=== PATIENT | male | born 1960 | race Caucasian/White ===

== ENCOUNTER 2016-04-20 17:36 | Inpatient (IN) | payer OTHER ==
[~2016-04-20] VITALS: Ht 177.8 cm; Wt 58.6 kg
[2016-04-20 19:09] LABS: HEMATOCRIT 45.3 % (38.0-50.0); MCH 32.2 PG (29.0-34.0); MCHC 34.9 G/DL (30.0-36.0); MCV 92.4 FL (86-99); MEAN PLAT.VOLUME 9.8 uM^3 (9.0-12.4); PLATELET COUNT 263 K/uL (156-360); RBC DIS.WIDTH-SD 43.1 % (39-53); WHITE BLOOD COUNT 26.3 K/uL (4.1-10.2)
[2016-04-20 19:10] LABS: CARBON DIOXIDE (BICARBONATE) 27.9 MEQ/L (20-31)
[2016-04-20 19:18] LABS: CHLORIDE 101 mEq/L (99-109); POTASSIUM 4.3 mEq/L (3.7-5.4); SODIUM 136 mEq/L (136-147)
[2016-04-20 19:20] LABS: GLUCOSE 98 mg/dL (70-99)
[2016-04-20 19:21] LABS: ANION GAP 10 MEQ/L (2-14)
[2016-04-20 19:24] LABS: GFR ESTIMATE (CALCULATED) > 59 mL/min/
[2016-04-20 19:25] LABS: UREA NITROGEN (BUN) 17 mg/dL (9-23)
[2016-04-20 19:30] LABS: TROP-I INTERPRETATION NEGATIVE; TROPONIN-I < 0.01 ng/mL (0.0-0.30)
[2016-04-20] MEDS ORDERED: BREO ELLIPTA I1 EACH IH (20:15)
[2016-04-20] MEDS ORDERED: PROAIR HFA8.5 GM IH (20:15)
[2016-04-20 22:35] VITALS: BP 102/58
[2016-04-20 23:28] LABS: ADD MIUA? NO; BILIRUBIN NEGATIVE; BLOOD NEGATIVE; COLOR YELLOW ((YELLOW)); GLUCOSE (STRIP) NEGATIVE; KETONES 20; LEUKOCYTES NEGATIVE; NITRITE NEGATIVE; PROTEIN (STRIP) NEGATIVE; SPECIFIC GRAVITY 1.028 (1.000-1.030); UCUL ADDED? NO; UROBILINOGEN 0.2 MG/DL (0.2-1.0)
[2016-04-21 03:30] VITALS: BP 98/54
[2016-04-21 06:45] LABS: HEMATOCRIT 42.2 % (38.0-50.0); MCH 31.8 PG (29.0-34.0); MCHC 33.6 G/DL (30.0-36.0); MCV 94.6 FL (86-99); MEAN PLAT.VOLUME 10.8 uM^3 (9.0-12.4); PLATELET COUNT 247 K/uL (156-360); RBC DIS.WIDTH-CV 13.2 % (11.8-14.6); RBC DIS.WIDTH-SD 45.8 % (39-53); RED BLOOD COUNT 4.46 M/uL (4.00-5.50); WHITE BLOOD COUNT 22.6 K/uL (4.1-10.2)
[2016-04-21 07:08] LABS: ANION GAP 7 MEQ/L (2-14); CHLORIDE 104 MEQ/L (99-109); GFR ESTIMATE (CALCULATED) > 59 mL/min/; GLUCOSE 124 mg/dL (70-99); POTASSIUM 4.6 MEQ/L (3.7-5.4); SAMPLE HEMOLYSIS CHECK 0; SAMPLE ICTERIC CHECK 0; SAMPLE LIPEMIA CHECK 0; SODIUM 136 MEQ/L (136-147); UREA NITROGEN (BUN) 17 mg/dL (9-23)
[2016-04-21 07:40] VITALS: BP 92/58
[2016-04-21 11:55] VITALS: BP 104/58
[2016-04-21] MEDS ORDERED: LEVOFLOXACIN750 MG PO (14:24)
[2016-04-21] MEDS ORDERED: PREDNISONE20 MG PO (14:24)
[2016-04-21] MEDS ORDERED: MUCINEX600 MG PO (14:24)
[2016-04-21 15:10] VITALS: BP 103/64
[2016-04-21 20:00] VITALS: BP 109/64
[2016-04-22] VITALS: BP 113/56
[2016-04-22 04:00] VITALS: BP 99/53
[2016-04-22 08:04] VITALS: BP 100/66
== END 2016-04-22 09:40 | disposition home or self-care (01) | DRG 190 ==
LOC: EME 17:36 → 2EAST 21:31 → EDOF 21:31 → 2EAST 22:28
PROVIDERS: Emergency Medicine; Hospitalist
DX: J44.0 Chronic obstructive pulmonary disease with (acute) lower respiratory infection (principal); J15.9 Unspecified bacterial pneumonia; J44.1 Chronic obstructive pulmonary disease with (acute) exacerbation; R63.4 Abnormal weight loss; F17.210 Nicotine dependence, cigarettes, uncomplicated
CPT/HCPCS: 71020; 71275; 80048; 81003; 82803; 83605; 83880; 84484; 85027; 87040; 87070; 87077; 87181; 87205; 93005; 94640; 94640 76; 94799; 99202; 99281; 99285; J0456; J0696; J1650; J2930; J7030; J7050; J7512

== ENCOUNTER 2017-05-09 20:16 | Emergency (ER) | payer OTHER ==
[~2017-05-09] VITALS: Ht 177.8 cm; Wt 54.5 kg
[~2017-05-09 20:16] MED LIST: BREO ELLIPTA I1 EACH IH; LEVOFLOXACIN750 MG PO; MUCINEX600 MG PO; PREDNISONE20 MG PO; PROAIR HFA8.5 GM IH
[2017-05-09 20:46] LABS: HEMATOCRIT 44.9 % (38.0-50.0); HEMOGLOBIN 15.5 G/DL (12.5-16.6); MCH 32.7 PG (29.0-34.0); MCHC 34.5 G/DL (30.0-36.0); MCV 94.7 FL (86-99); PLATELET COUNT 260 K/uL (156-360); RBC DIS.WIDTH-CV 12.7 % (11.8-14.6); RBC DIS.WIDTH-SD 44.8 % (39-53); RED BLOOD COUNT 4.74 M/uL (4.00-5.50); WHITE BLOOD COUNT 14.8 K/uL (4.1-10.2)
[2017-05-09 20:54] LABS: CHLORIDE 104 mEq/L (99-109); POTASSIUM 4.3 mEq/L (3.7-5.4); SODIUM 139 mEq/L (136-147)
[2017-05-09 20:56] LABS: GLUCOSE 92 mg/dL (70-99)
[2017-05-09 20:58] LABS: TOTAL BILIRUBIN 0.3 mg/dL (0.0-1.0)
[2017-05-09 21:00] LABS: ALKALINE PHOSPHATASE 77 IU/L (3-129); CREATININE 0.9 mg/dL (0.6-1.3); GFR ESTIMATE (CALCULATED) > 59 mL/min/ (58.99-99999)
[2017-05-09 21:01] LABS: UREA NITROGEN (BUN) 13 mg/dL (9-23)
[2017-05-09 21:02] LABS: AST (GOT) 23 IU/L (2-34)
[2017-05-09 21:03] LABS: ALT (GPT) 24 IU/L (3-49)
[2017-05-09 21:09] LABS: TROP-I INTERPRETATION NEGATIVE; TROPONIN-I < 0.01 ng/mL (0.0-0.30)
[2017-05-09] MEDS ORDERED: PREDNISONE20 MG PO (22:50)
[2017-05-09] MEDS ORDERED: PROVENTIL HFA6.7 GM IH (22:50)
[2017-05-09] MEDS ORDERED: LEVAQUIN750 MG PO (22:50)
[2017-05-09 23:24] VITALS: BP 101/59
== END 2017-05-09 23:41 | disposition home or self-care (01) ==
LOC: EME → EDBD 20:16 → EME 20:16
PROVIDERS: Emergency Medicine
DX: J44.1 Chronic obstructive pulmonary disease with (acute) exacerbation (principal); Z87.891 Personal history of nicotine dependence
CPT/HCPCS: 71045; 80053; 84484; 85027; 93005; 99281; 99285; J1100; J1956; J7644

== ENCOUNTER 2017-09-12 05:22 | Inpatient (IN) | payer OTHER ==
[~2017-09-12] VITALS: Ht 177.8 cm; Wt 58.3 kg
[~2017-09-12 05:22] MED LIST changes: +LEVAQUIN750 MG PO; +PROVENTIL HFA6.7 GM IH
[2017-09-12 06:07] LABS: COMMENTS - BLOOD GASES C+; DEVICE NIV; SITE LR
[2017-09-12 06:08] LABS: BASE EXCESS -3.3 mEq/L (-3 to +3); CARBOXY HGB 2.5 % (0-5); FI02 50 %; METHEMOGLOBIN 1.1 % (0-1.5); MODE SPONT; O2 SATURATION (CALCULATED) 96.1 % (95-99); PCO2 50 mm Hg (35-45); PEEP 6 CM/H20; PO2 211 mm Hg (80-100); PRES. SUPPORT 12 CM/H2O; TOTAL RESP RATE 16 resp/min; pH 7.29 (7.35-7.45)
[2017-09-12 06:21] LABS: HEMATOCRIT 46.6 % (38.0-50.0); HEMOGLOBIN 16.4 G/DL (12.5-16.6); MCH 33.1 PG (29.0-34.0); MCHC 35.2 G/DL (30.0-36.0); MCV 94.1 FL (86-99); RBC DIS.WIDTH-CV 12.7 % (11.8-14.6); RBC DIS.WIDTH-SD 44.1 % (39-53); RED BLOOD COUNT 4.95 M/uL (4.00-5.50); WHITE BLOOD COUNT 7.5 K/uL (4.1-10.2)
[2017-09-12 06:24] LABS: ALBUMIN 4.4 g/dL (3.2-4.8)
[2017-09-12 06:25] LABS: CHLORIDE 103 mEq/L (99-109); POTASSIUM 4.8 mEq/L (3.7-5.4); SODIUM 139 mEq/L (136-147)
[2017-09-12 06:27] LABS: GLUCOSE 190 mg/dL (70-99); TOTAL PROTEIN 7.5 g/dL (6.4-8.3)
[2017-09-12 06:29] LABS: TOTAL BILIRUBIN 0.4 mg/dL (0.0-1.0)
[2017-09-12 06:30] LABS: ALKALINE PHOSPHATASE 91 IU/L (3-129)
[2017-09-12 06:31] LABS: CREATININE 1.4 mg/dL (0.6-1.3); GFR ESTIMATE (CALCULATED) 56 mL/min/ (58.99-99999)
[2017-09-12 06:32] LABS: AST (GOT) 31 IU/L (2-34); UREA NITROGEN (BUN) 20 mg/dL (9-23)
[2017-09-12 06:34] LABS: ALT (GPT) 29 IU/L (3-49); LIPASE 45 U/L (1.0-51.0)
[2017-09-12 06:41] LABS: TROP-I INTERPRETATION NEGATIVE; TROPONIN-I 0.02 ng/mL (0.0-0.30)
[2017-09-12 06:57] LABS: CARBOXY HGB 2.9 % (0-5); O2 SATURATION (CALCULATED) 95.8 % (95-99); PCO2 47 mm Hg (35-45); PO2 159 mm Hg (80-100); pH 7.34 (7.35-7.45)
[2017-09-12 06:58] LABS: BICARBONATE 25.4 mEq/L (22-26); METHEMOGLOBIN 1.4 % (0-1.5)
[2017-09-12 07:01] LABS: PLAT.SUFFICIENCY ADEQUATE; PLATELET COUNT 288 K/uL (156-360)
[2017-09-12] MEDS ORDERED: SYMBICORT60 INHALAT IH (08:08)
[2017-09-12] MEDS ORDERED: INCRUSE ELLI62.5 MCG IH (08:08)
[2017-09-12] MEDS ORDERED: THEOPHYLLINE600 MG PO (08:08)
[2017-09-12 10:58] VITALS: BP 110/59
[2017-09-12 16:00] VITALS: BP 131/71
[2017-09-12 19:34] VITALS: BP 109/65
[2017-09-12 23:48] VITALS: BP 122/88
[2017-09-13 04:05] VITALS: BP 93/58
[2017-09-13 06:38] LABS: CHLORIDE 107 MEQ/L (99-109); GFR ESTIMATE (CALCULATED) > 59 mL/min/ (58.99-99999); GLUCOSE 129 mg/dL (70-99); POTASSIUM 4.6 MEQ/L (3.7-5.4); SODIUM 139 MEQ/L (136-147); UREA NITROGEN (BUN) 16 mg/dL (9-23)
[2017-09-13 07:54] VITALS: BP 105/66
[2017-09-13 11:37] VITALS: BP 118/74
[2017-09-13 16:19] VITALS: BP 111/68
[2017-09-13 20:20] VITALS: BP 107/64
[2017-09-14 00:02] VITALS: BP 112/70
[2017-09-14 05:05] VITALS: BP 115/57
[2017-09-14 07:28] VITALS: BP 90/65
[2017-09-14] MEDS ORDERED: DUONEB 2.5-0.5 M3 ML AEROSOL (07:40)
[2017-09-14] MEDS ORDERED: PREDNISONE10 MG PO (07:40)
== END 2017-09-14 13:08 | disposition home or self-care (01) | DRG 190 ==
LOC: EME → EDBD 05:22 → 5SOUTH 08:05 → EDOF 08:05 → ENRESERV 08:07 → 5SOUTH 10:43
PROVIDERS: Emergency Medicine; Hospitalist
PROC: 5A0935Z Assistance with Respiratory Ventilation, Less than 24 Consecutive Hours (ICD-10-PCS; principal; 2017-09-12)
DX: J44.1 Chronic obstructive pulmonary disease with (acute) exacerbation (principal); J96.01 Acute respiratory failure with hypoxia; J96.02 Acute respiratory failure with hypercapnia; N17.9 Acute kidney failure, unspecified; E87.2 Acidosis; E86.0 Dehydration; J20.9 Acute bronchitis, unspecified; J44.0 Chronic obstructive pulmonary disease with (acute) lower respiratory infection; Z87.891 Personal history of nicotine dependence; Z79.51 Long term (current) use of inhaled steroids
CPT/HCPCS: 36600; 71045; 80048; 80053; 80198; 83605; 83690; 83880; 84484; 85027; 87040; 93005; 94002; 94640; 94799; 99281; 99285; J1644; J2920; J2930; J3475; J7030